=== PATIENT | male | born 1975 | race Caucasian/White ===

== ENCOUNTER 2017-09-24 09:59 | Outpatient (CLI) | payer BC ==
--- NOTE | 2017-09-24 13:29 | MRI ---
MRI LUMBAR SPINE WITH AND WITHOUT CONTRAST: Technique: Multiplanar, multisequential imaging of the lumbar spine obtained. Post contrast images we re obtained after administration of 20 cc MultiHance IV. History: Lumbar radiculopathy. Previous lumbar surgery. Back pain with radiation to the left leg. Comparison: None. FINDINGS: Lumbar vertebrae maintain normal height and alignment. There is mild loss of disc space at L5-S1. The other disc spaces are normally maintained. Laminectomy changes seen on the right at L5-S1. No disc bulge or disc protrusion seen at the L1-2, L2-3, or L3-4 levels. Mild facet arthrosis at thes e levels without evidence of central canal or foraminal stenosis. At L4-5, a very mild disc bulge flattens the anterior thecal sac. Facet hypertrophy is more prominent . Mild central canal stenosis at this level. At L5-S1, posterior laminectomy changes as noted above. High T2 signal anterior spinal canal centrall y and the right which does show enhancement consistent with prior discectomy procedure. On the unenha nced T1 axial images this signal does abut and mildly displace the traversing right S1 nerve root whi ch may indicate post-operative scar compressing on this nerve root. No significant central canal sten osis. There is moderate facet hypertrophy. Mild foraminal narrowing. IMPRESSION: Post op laminectomy changes at L5-S1 on the right. There is high T2 signal and enhancement of the ant erior spinal canal centrally and to the right consistent with prior discectomy procedure. Slight disp lacement of the traversing right S1 nerve root, possibly due to operative scar. POS: KAREN
== END 2017-09-24 10:00 | disposition home or self-care (01) ==
LOC: TBSIIMAG 09:59
PROVIDERS: ATTEND Neurological Surgery
DX: M54.16 Radiculopathy, lumbar region (principal); Z98.890 Other specified postprocedural states
CPT/HCPCS: 72158